=== PATIENT | male | born 1940 | race Hispanic/Latino ===

== ENCOUNTER → 2017-08-06 | Outpatient (CLI) | payer MEDICARE ==
--- NOTE | 2017-08-06 14:31 | Diagnostic Imaging Report ---
TECHNIQUE: Computed tomography imaging of the RIGHT SHOULDER was performed WITHOUT injected contrast. COMPARISON: None available. HISTORY: Right shoulder pain, history of fracture. FINDINGS: Impaction fracture to the anteromedial humeral head with defect measuring up to 1 cm in depth. 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 Small glenohumeral joint effusion. No additional fracture. No significant muscle atrophy. Nonspecific interstitial lung disease within the partially visualized lungs. 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 Signed by: Dr. Alex Tanner M.D. on 08/06/2017 2:28 PM
== END ==
LOC: CT 11:25
PROVIDERS: ATTEND Specialist
DX: S42.221A 2-part displaced fracture of surgical neck of right humerus, initial encounter for closed fracture (principal); M75.01 Adhesive capsulitis of right shoulder; M24.641 Ankylosis, right hand

== ENCOUNTER 2018-09-04 17:55 | Emergency (ER) | payer MEDICARE ==
--- OUTSIDE RECORDS SUMMARY | 2018-09-04 17:56 | XMS REPORT | Clinical Summary ---
Author Author [facility] Address Unknown Phone Unavailable Care Team Providers Care Whiting Can Worker Name Role Phone Jeovanny Crowell PCP Allergies Comments Active Allergy Reactions Severity Noted Date Aspirin Itching 08/14/2016 Ibuprofen Itching 01/31/2016 Medications End Date Status Medication Sig Dispensed Refills Start Date Active atorvastatin (LIPITOR) 40 Take 40 mg by 0 MG tablet mouth daily. Active albuterol (PROVENTIL Inhale 2 0 HFA;VENTOLIN HFA) 90 puffs every 6 mcg/actuation inhaler (six) hours as needed for wheezing. Active levothyroxine (SYNTHROID, Take 88 mcg 0 LEVOXYL) 88 mcg tablet by mouth every morning. Active loratadine (CLARITIN) 10 Take 10 mg by 0 mg tablet mouth daily. With dinner Active Problems Problem Noted Date Acute respiratory insufficiency/ possible aspiration. 04/28/2017 Seizure 04/28/2017 Acidosis, metabolic 04/27/2017 History of renal stent 11/16/2016 Acquired hydronephrosis 10/22/2016 Hydronephrosis 08/14/2016 Hydronephrosis, bilateral 08/10/2016 Bilateral hydronephrosis 08/08/2016 Hypothyroidism 04/24/2016 Recurrent UTI 04/21/2016 Hypertension 04/21/2016 Diabetes 04/21/2016 History of bladder cancer (S/P Radical cystectomy/ ileal conduit) 04/21/2016 Hyperlipidemia 04/21/2016 Depression 04/21/2016 Anemia 04/21/2016 CKD (chronic kidney disease) 04/21/2016 Acute kidney injury superimposed on chronic kidney disease 04/21/2016 Bladder cancer 02/13/2016 Immunizations Name Dates Previously Given Next Due INFLUENZA QUAD PF 04/12/2016 Family History Relation Name Status Comments Father Mother Social History Date Tobacco Use Types Packs/Day Years Used Quit: 1981 Former Smoker Cigarettes 0.5 10 Comments: quit 40 yrs ago Alcohol Use Drinks/Week oz/Week Comments No Sex Assigned at Date Recorded Not on file Industry Job Start Date Occupation Not on file Not on file Not on file Travel End Travel History Travel Start No recent travel history available. Last Filed Vital Signs Not on file Plan of Treatment Health Maintenance Due Date Last Done Comments DIABETIC RETINAL EYE EXAM 1940 DIABETIC FOOT EXAM 1951 SHINGLES VACCINES (#1) 1991 65+ PNEUMOCOCCAL VACCINE 2006 (1 of 2 - PCV13) PNEUMOCOCCAL 2006 POLYSACCHARIDE VACCINE AGE 65 AND OVER INFLUENZA VACCINE 01/15/2018 04/12/2016 Implants Device Identifier Shelf Expiration Date Model / Serial / Lot Implanted Type Area Manufactur er [id number] / / Hemostat Absrbl 4x4in Surgicel Snow Cardiovasc N/A: N/A ETHICON - [id number] [facility]- Implanted: 02/13/2016 (Quantity not Implants on file) [id number] / / Hemostat Absrbl 4x4in Surgicel Snow Cardiovasc N/A: N/A ETHICON - [id number] [facility]- Implanted: 02/13/2016 (Quantity not Implants on file) [id number] / / Clip Ligtng Hem-O-Acm Endoscpc Aplr Surgical N/A: [facility] [id number] Implants; CLOSURE Implanted: 02/13/2016 (Quantity not Expanders; SYSTEMS on file) Extenders; Surgical Wires [id number] / / Clip Ligtng Hem-O-Cam Endoscpc Aplr Surgical N/A: N/[facility] [id number] Implants; CLOSURE Implanted: 02/13/2016 (Quantity not Expanders; SYSTEMS on file) Extenders; Surgical Wires [id number] / / Catheter Uretl Ultrathane 8.5fr Surgical N/A: N/A COOK 25cm 6sp Mac-Loc Lkng Loop - Implants; INTERVENTI [id number] Expanders; ONAL Implanted: 08/14/2016 (Quantity not Extenders; RADIOLOGY on file) Surgical Wires [id number] / / Catheter Uretl Ultrathane 8.5fr Surgical N/A: N/A COOK 25cm 6sp Mac-Loc Lkng Loop - Implants; INTERVENTI [id number] Expanders; ONAL Implanted: 08/14/2016 (Quantity not Extenders; RADIOLOGY on file) Surgical Wires 05/22/2021 [id number] / / Clip Ligtng Hem-O-Cam Endoscpc Aplr Surgical N/A: N/A DULCE MARIA Ply Lg - [id number] Implants; CLOSURE Implanted: Qty: 1 on 10/22/2016 by Expanders; SYSTEMS [facility] Extenders; Surgical Wires 05/29/2019 [id number] / / [id number] Stent Uretl Sof-Flex Kwart Surgical N/A: N/A COOK Retro-Inject W/ Ds 4.7fr 24cm - Stents UROLOGICAL [id number] Implanted: 10/22/2016 (Quantity not on file) 05/29/2019 [id number] / / [id number] Stent Uretl Sof-Flex Kwart Surgical N/A: N/A COOK Retro-Inject W/ Ds 4.7fr 24cm - Stents UROLOGICAL [id number] Implanted: 10/22/2016 (Quantity not on file) 04/07/2018 [id number] / / [id number] Stent Uretl Sof-Flex Access Rep Divrsn Urological N/A: N/A COOK 7fr 75cm W/ Ds - [id number] Implants UROLOGICAL Implanted: 02/13/2016 (Quantity not or Sets on file) Procedures Comments Procedure Name Priority Date/Time Associated Diagnosis TRANSFUSE RED BLOOD CELLS Routine 02/19/2018 5:32 PM CDT TRANSFUSE RED BLOOD CELLS Routine 02/19/2018 5:27 PM CDT TRANSFUSE RED BLOOD CELLS Routine 02/19/2018 5:24 PM CDT TRANSFUSE RED BLOOD CELLS Routine 02/19/2018 5:24 PM CDT after 09/03/2017 Results * Transfuse RBC (02/19/2018 5:32 PM CDT) Only the most recent of 4 results within the time period is included. after 09/03/2017 Insurance Payer Benefit Subscriber ID Type Phone Address Plan / Group MEDICARE MEDICARE xxxxxxxxxx Medicare [place], [place] PART A [place] B MEDICAID MEDICAID xxxxxxxxx Medicaid Advance Directives Patient has advance care planning documents, and code status on file. For more i nformation, please contact: Levy Ornelas [phone] [place] [address] Date Inactivated Comments Code Status Date Activated 10/25/2016 10:36 PM Full Code 10/22/2016 1:19 PM Code Status decision reached by: Patient 08/15/2016 3:56 PM Full Code 08/14/2016 3:08 PM Code Status decision reached by: Patient
--- OUTSIDE RECORDS SUMMARY | 2018-09-04 17:56 | XMS REPORT | Clinical Summary ---
Author Author [facility] Address Unknown Phone Unavailable Care Team Providers Care Teacher Of The Deaf/Hard Of Hearing Name Role Phone Jeovanny Crowell PCP Allergies Not on File Medications Not on file Active Problems Not on file Social History Date Tobacco Use Types Packs/Day Years Used Never Assessed Sex Assigned at Date Recorded Not on file Industry Job Start Date Occupation Not on file Not on file Not on file Travel End Travel History Travel Start No recent travel history available. Last Filed Vital Signs Not on file Plan of Treatment Not on file Results Not on fileafter 09/03/2017 Insurance Payer Benefit Subscriber ID Type Phone Address Plan / Group MEDICARE MEDICARE A xxxxxxxxxx Medicare B CIGNA - COMMERCIAL CIGNA xxxxxxxxxxx Comm INDEMNITY MEDICAID MEDICAID xxxxxxxxx Medicaid OF [place]
--- OUTSIDE RECORDS SUMMARY | 2018-09-04 17:56 | XMS REPORT ---
Author [email or web address] Address Unknown Phone Unavailable Care Team Providers Care Vocal Teacher Name Role Phone JOSE MALCOLM Unavailable Unavailable Problems This patient has no known problems. Allergies, Adverse Reactions, Alerts This patient has no known allergies or adverse reactions. Medications This patient has no known medications. Results Test Description Test Time Test Comments Text Results Atomic Results Result Comments CT SHOULDER RIGHT WO [place] [address] Patient Name: BILLIE ELLIS MR #: [id number] : 1940 Age/Sex: 77/M Req #: [id number] Adm Physician: Ordered by: JOSE MALCOLM MD Report #: [id number] Location: CT Room/Bed: Procedure: [id number] CT/CT SHOULDER RIGHT WO Exam Date: 08/06/17 Exam Time: 1145 REPORT STATUS: Signed TECHNIQUE: Computed tomography imaging of the RIGHT SHOULDER was performed WITHOUT injected contrast. COMPARISON: None available. HISTORY: Right shoulder pain, history of fracture. FINDINGS: Impaction fracture to the anteromedial humeral head with defect measuring up to 1 cm in depth. 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 Small glenohumeral joint effusion. No additional fracture. No significant muscle atrophy. Nonspecific interstitial lung disease within the partially visualized lungs. IMPRESSION: Probable prior posterior shoulder dislocation: Large impaction fracture to the anteromedial humeral head Posttraumatic deformity of the posterior glenoid with heterotopic ossification/callus forma tion. Signed by: Dr. Elisabeth Jenkins M.D. on 08/06/2017 2:28 PM Dictated By: ELISABETH JENKINS MD 1428 Transcribed By: ROGER on 08/06/171427 COPY TO: JOSE MALCOLM MD
== END 2018-09-04 19:40 | disposition short-term general hospital (02) ==
LOC: ER 17:55
DX: M54.2 Cervicalgia (principal)